=== PATIENT | female | born 1955 | race Asian ===

== ENCOUNTER 2020-07-08 09:53 | Outpatient (CLI) | payer MEDICARE, OTHER | END 2020-07-08 09:54 | disposition critical access hospital (66) | LOC: EMS 09:53 | PROVIDERS: ATTEND Surgery | DX: R68.84 Jaw pain (principal); M25.432 Effusion, left wrist | CPT/HCPCS: A0425; A0429 ==

== ENCOUNTER 2020-07-08 10:37 | Emergency (ER) | payer OTHER, MEDICARE ==
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
[2020-07-08] MEDS ORDERED: ACETAMINOPHEN 325 MG TABLET PO STA (10:53)
[2020-07-08] MEDS ORDERED: NAPROXEN 250 MG TABLET PO STA (10:53)
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
[2020-07-08 12:18] VITALS: BP 131/72
== END 2020-07-08 12:38 | disposition home or self-care (01) ==
LOC: EDUNIT# → EDBD → ED 10:37
DX: S16.1XXA Strain of muscle, fascia and tendon at neck level, initial encounter (principal); S39.012A Strain of muscle, fascia and tendon of lower back, initial encounter; S60.312A Abrasion of left thumb, initial encounter; V43.52XA Car driver injured in collision with other type car in traffic accident, initial encounter; W22.11XA Striking against or struck by driver side automobile airbag, initial encounter; Y92.410 Unspecified street and highway as the place of occurrence of the external cause; I10 Essential (primary) hypertension
CPT/HCPCS: 72125; 72131; 99283; A9270

== ENCOUNTER 2020-09-06 08:00 | Outpatient (CLI) | payer OTHER, MEDICARE ==
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
--- NOTE | 2020-09-06 23:49 | XRAY Report ---
PROCEDURE: Wrist 3 View LT INDICATIONS: L WRIST PX TECHNIQUE: 3 views of the wrist were acquired. COMPARISON: None FINDINGS: Bones: No fractures or dislocations. No suspicious bony lesions. Scaphoid view: Not obtained but the scaphoid visualized appears normal. Soft tissues: No suspicious soft tissue calcifications. IMPRESSION: Mild degenerative osteoarthritic change at the base of the first metacarpal and the interface between the distal scaphoid and the base of the trapezium. This is a likely cause for lateral wrist pain. No trauma suspected at this time. Reviewed by: Julio Cesar Boss MD on 09/06/2020 4:56 PM [facility] Approved by: Julio Cesar Boss MD on 09/06/2020 4:56 PM [facility] Station ID: [id number]
--- NOTE | 2020-09-06 23:49 | XRAY Report ---
PROCEDURE: Finger(s) LT INDICATIONS: L THUMB PX TECHNIQUE: AP hand, 3 views of the left first finger(s) acquired. COMPARISON: None FINDINGS: Bones: No fractures or dislocations. No suspicious bony lesions. Soft tissues: No suspicious soft tissue calcifications. IMPRESSION: No fracture. No acute osseous lesion. If there are persistent symptoms or continued clinical concern for pathology, then repeat plain film radiographs (7-10 days) or advanced imaging (CT, MR, bone scan) should be considered for further evaluation. Reviewed by: Hamida Tam MD, PhD on 09/06/2020 4:40 PM PST Approved by: Hamida Tam MD, PhD on 09/06/2020 4:40 PM [facility] Station ID: [id number]
== END 2020-09-06 23:59 | disposition home or self-care (01) ==
LOC: DI.N 08:00
PROVIDERS: ATTEND Physician Assistant Medical
DX: M79.645 Pain in left finger(s) (principal); M75.42 Impingement syndrome of left shoulder; M19.012 Primary osteoarthritis, left shoulder; M19.032 Primary osteoarthritis, left wrist

== ENCOUNTER 2024-04-07 15:23 | Outpatient (CLI) | payer OTHER ==
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
== END 2024-04-07 15:24 ==
LOC: DI.N 15:23
PROVIDERS: ATTEND Physician Assistant Surgical
DX: M19.011 Primary osteoarthritis, right shoulder (principal); M19.012 Primary osteoarthritis, left shoulder; S46.012D Strain of muscle(s) and tendon(s) of the rotator cuff of left shoulder, subsequent encounter